=== PATIENT | male | born 1970 | race Caucasian/White ===

== ENCOUNTER 2016-10-04 17:55 | Inpatient (IN) | payer SELFPAY ==
[~2016-10-04] VITALS: Ht 180.3 cm; Wt 122.1 kg
[2016-10-04] MEDS ORDERED: ONDANSETRON 2MG/ML, 2ML IVPush ONE (18:30)
[2016-10-04] MEDS ORDERED: CLINDAMYCIN PMX 600MG/50ML 50 ML IV ONE (18:30)
[2016-10-04] MEDS ORDERED: MORPHINE SULFATE 4 MG/ML, 1ML IVPush PRN ×2 (18:30→20:30)
[2016-10-04] MEDS ORDERED: SODIUM CHLORIDE FLUSH 10ML SYR IVF ONE (18:30)
[2016-10-04] MEDS ORDERED: SODIUM CHLORIDE 0.9% 1,000ML IVBOLUS ONE (18:30)
[2016-10-04 18:47] LABS: HEMOGLOBIN 14.6 g/dL (13.7-18.0)
[2016-10-04 19:00] LABS: BLOOD UREA NITROGEN 18 mg/dL (7-18)
[2016-10-04 19:03] LABS: ASPARTATE AMINO TRANSFERASE 29 U/L (15-37)
[2016-10-04] MEDS ORDERED: ONDANSETRON 2MG/ML, 2ML ONE (19:11)
[2016-10-04] MEDS ORDERED: MORPHINE SULFATE 4 MG/ML, 1ML ONE (19:11)
[2016-10-04] MEDS ORDERED: ACETAMINOPHEN 325 MG TABLET PO PRN (20:30)
[2016-10-04] MEDS ORDERED: VANCOMYCIN 2,000 MG in SODIUM CHLORIDE 0.9% 500 ML IV ONE (20:30)
[2016-10-04] MEDS ORDERED: ZOLPIDEM 5MG TABLET PO PRN (20:30)
[2016-10-04] MEDS ORDERED: VANCOMYCIN PER PHARMACY MC ONE (20:30)
[2016-10-04] MEDS ORDERED: LORazepam 2 MG/ML, 1ML IVPush PRN (20:30)
[2016-10-04] MEDS ORDERED: GUAIFENESIN/DM 200-20MG, 10ML UDC PO PRN (20:30)
[2016-10-04] MEDS ORDERED: ONDANSETRON 2MG/ML, 2ML IVP PRN (20:30)
[2016-10-04] MEDS ORDERED: VANCOMYCIN PER PHARMACY MC PRN (21:00)
[2016-10-04] MEDS ORDERED: FAMOTIDINE 20 MG TABLET ONE (23:33)
[2016-10-04] MEDS: FAMOTIDINE 20 MG TABLET PO SCH (23:35)
[2016-10-05] MEDS ORDERED: PIPERACILLIN/TAZO/PMX 3.375GM 50 ML ONE (00:53)
[2016-10-05] MEDS: PIPERACILLIN/TAZO/PMX 3.375GM 50 ML IV SCH ×4 (01:16→21:41)
[2016-10-05] MEDS: LACTATED RINGERS 1,000 ML IV SCH ×3 (02:11→18:21)
[2016-10-05 02:15] VITALS: BP 136/92
[2016-10-05] MEDS ORDERED: PHARMACOKINETIC MONITORING MC PRN (02:30)
[2016-10-05] MEDS ORDERED: PHARMACOKINETIC CONSULTATION MC ONE (02:30)
[2016-10-05 05:38] LABS: HEMOGLOBIN 12.7 g/dL (13.7-18.0)
[2016-10-05 05:48] LABS: BLOOD UREA NITROGEN 15 mg/dL (7-18)
[2016-10-05] MEDS: FAMOTIDINE 20 MG TABLET PO SCH ×2 (08:25→21:41)
[2016-10-05 08:58] VITALS: BP 132/91
[2016-10-05] MEDS: HYDROcodone/APAP 5/325 TABLET PO PRN ×2 (13:59→17:51)
[2016-10-05 16:27] VITALS: BP 128/79
[2016-10-05] MEDS: VANCOMYCIN 2,000 MG in SODIUM CHLORIDE 0.9% 500 ML IV SCH (18:21)
[2016-10-05 18:56] VITALS: BP 142/90
[2016-10-05] MEDS: LACTOBACILLUS 1GM/ PACKET PO SCH (21:42)
[2016-10-06 02:59] VITALS: BP 138/82
[2016-10-06] MEDS: PIPERACILLIN/TAZO/PMX 3.375GM 50 ML IV SCH ×4 (03:45→21:07)
[2016-10-06 05:23] LABS: HEMOGLOBIN 13.1 g/dL (13.7-18.0)
[2016-10-06 05:56] LABS: BLOOD UREA NITROGEN 13 mg/dL (7-18)
[2016-10-06] MEDS: LACTOBACILLUS 1GM/ PACKET PO SCH ×2 (05:56→11:57)
[2016-10-06] MEDS: VANCOMYCIN 2,000 MG in SODIUM CHLORIDE 0.9% 500 ML IV SCH ×2 (06:00→18:14)
[2016-10-06 07:10] VITALS: BP 146/96
[2016-10-06] MEDS: HYDROcodone/APAP 5/325 TABLET PO PRN ×3 (09:10→21:08)
[2016-10-06] MEDS: FAMOTIDINE 20 MG TABLET PO SCH ×2 (09:10→21:06)
[2016-10-06 13:21] VITALS: BP 146/92
[2016-10-06] MEDS ORDERED: ENOXAPARIN 40 MG/0.4 ML SQ SCH (15:00)
[2016-10-06] MEDS: LACTOBACILLUS CHEW TABLET PO SCH ×2 (18:14→21:06)
[2016-10-06 18:32] VITALS: BP 164/103
[2016-10-07 01:14] VITALS: BP 148/95
[2016-10-07] MEDS: VANCOMYCIN 1,800 MG in SODIUM CHLORIDE 0.9% 250 ML IV SCH ×2 (02:04→09:12)
[2016-10-07] MEDS: PIPERACILLIN/TAZO/PMX 3.375GM 50 ML IV SCH ×2 (03:52→09:12)
[2016-10-07 05:26] LABS: HEMOGLOBIN 13.7 g/dL (13.7-18.0)
[2016-10-07] MEDS: LACTOBACILLUS CHEW TABLET PO SCH ×2 (06:20→11:12)
[2016-10-07] MEDS: HYDROcodone/APAP 5/325 TABLET PO PRN (06:23)
[2016-10-07 07:04] VITALS: BP 124/81
[2016-10-07] MEDS: FAMOTIDINE 20 MG TABLET PO SCH (08:10)
[2016-10-07 13:30] VITALS: BP 144/94
[2016-10-07] MEDS ORDERED: INDO25CA PO (14:41)
[2016-10-07] MEDS ORDERED: SULF1TAB24 PO (14:42)
== END 2016-10-07 15:10 | disposition home or self-care (01) | DRG 603 ==
LOC: ED 20:00 → EDIP 20:12 → 4WST 10-05 02:05
PROVIDERS: ADMIT Internal Medicine; ATTEND Internal Medicine
DX: L03.115 Cellulitis of right lower limb (principal); M70.41 Prepatellar bursitis, right knee; S80.211A Abrasion, right knee, initial encounter; K21.9 Gastro-esophageal reflux disease without esophagitis; Z87.891 Personal history of nicotine dependence; Z91.81 History of falling; L02.415 Cutaneous abscess of right lower limb; X58.XXXA Exposure to other specified factors, initial encounter; Y92.89 Other specified places as the place of occurrence of the external cause; Y99.8 Other external cause status; W19.XXXA Unspecified fall, initial encounter
CPT/HCPCS: 36415; 80048; 80053; 80202; 83605; 84145; 85025; 85651; 86140; 87040; 96361; 96374; 96375; J1650; J2405; J2543; J3370; J7030; J7040; J7050; J7120